=== PATIENT | female | born 2005 | race Two or more races ===

== ENCOUNTER 2025-02-16 16:09 | Emergency (ER) | payer MEDICAID, OTHER ==
--- NOTE | 2025-02-16 16:39 | ED.PDOC ---
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 Patient reports she is X4 weeks with her first child. Patient reports abdominal pain as constant, radiating to lower back, with no associated relieving factors. Patient has no further complaints at this time and otherwise denies further associated symptoms of dysuria, hematuria, fever, chills, diarrhea, or N/V. Chief Complaint: Vaginal Bleed Time Seen by MD: 16:34 Reviewed Notes: Nurses Notes, Medications, Allergies Allergies: Coded Allergies: NO KNOWN ALLERGIES (Unverified , 02/16/25) Information Source: Patient Mode of Arrival: Ambulatory Timing: Minutes Severity: Moderate Onset Of Mass/Bleeding: Spontaneous Associated Signs and Symptoms: Vaginal Bleeding, Abdominal Pain Past Medical History PAST MEDICAL HISTORY: Denies Surgical History: Denies all surgeries 1 Social History Smoker: Non-Smoker Alcohol: Denies ETOH Use Drugs: Denies Drug Use Lives In: Home Constitutional: denies: chills, diaphoresis, fatigue, fever, malaise, sweats, weakness, others EENTM: denies: blurred vision, double vision, ear bleeding, ear discharge, ear drainage, ear pain, ear ringing, eye pain, eye redness, hearing loss, mouth pain, mouth swelling, nasal discharge, nose bleeding, nose congestion, nose pain, photophobia, tearing, throat pain, throat swelling, voice changes, others Respiratory: denies: cough, hemoptysis, orthopnea, SOB at rest, shortness of breath, SOB with excertion, stridor, wheezing, others Cardiovascular: denies: chest pain, dizzy spells, diaphoresis, Dyspnea on exertion, edema, irregular heart beat, left arm pain, lightheadedness, palpitations, PND, syncope, others Gastrointestinal: reports: abdominal pain; denies: abdomen distended, blood streaked bowels, constipated, diarrhea, dysphagia, difficulty swallowing, hematemesis, melena, nausea, poor appetite, poor fluid intake, rectal bleeding, rectal pain, vomiting, others Genitourinary: reports: abnormal vagina bleeding, ; denies: burning, dyspareunia, dysuria, flank pain, frequency, hematuria, incontinence, pain, vagina discharge, urgency, others Neurological: denies: dizziness, fainting, headache, left sided numbness, left sided weakness, numbness, paresthesia, pre-existing deficit, right sided numbness, right sided weakness, seizure, speech problems, tingling, tremors, weakness, others Musculoskeletal: denies: back pain, gout, joint pain, joint swelling, muscle pain, muscle stiffness, neck pain, others Integumetry: denies: bruises, change in color, change in hair/nails, dryness, laceration, lesions, lumps, rash, wounds, others Allergic/Immunocompromised: denies: Difficulty Healing, Frequent Infections, Hives, Itching, others Hematologic/Lymphatic: denies: anemia, blood clots, easy bleeding, easy bruising, swollen glands, others Endocrine: denies: excessive hunger, excessive sweating, excessive thirst, excessive urination, flushing, intolerance to cold, intolerance to heat, unexplained weight gain, unexplained weight loss, others Psychiatric: denies: anxiety, bipolar disorder, depression, hopeless, panic disorder, schizophrenia, sleepless, suicidal, others All Other Systems: Reviewed and Negative Physical Exam General Appearance: No Apparent Distress HEENT: Normal ENT Inspection, Pharynx Normal, TMs Normal Neck: Full Range of Motion, Non-Tender, Normal, Normal Inspection Respiratory: Chest Non-Tender, Lungs Clear, No Accessory Muscle Use, No Respiratory Distress, Normal Breath Sounds Cardiovascular: No Edema, No JVD, No Murmur, No Gallop, Normal Peripheral Pulses, Regular Rate/Rhythm Breast Exam: Deferred Gastrointestinal: No Organomegaly, Non Tender, No Pulsatile Mass, Normal Bowel Sounds, Soft Genitalia: Deferred Pelvic: Deferred Rectal: Deferred Extremities: No calf tenderness, Normal capillary refill, Normal inspection, Normal range of motion, Non-tender, No pedal edema Musculoskeletal : Apperance: Normal Neurologic: Alert, 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 Was a procedure done?: No Differential Diagnosis (MACHINE [employer]ATE [employer]ER) Vaginal Bleeding: - Incomplete, - Threatened, Ectopic Vaginal Discharge: X-Ray, Labs, Meds, VS Vital Signs Date Time Temp Pulse Resp B/P (MAP) Pulse Ox O2 Delivery O2 Flow Rate FiO2 02/16/25 16:11 98.7 105 20 135/81 95 98.7 Lab Test 02/16/25 16:54 02/16/25 16:19 Range/Units Beta HCG, Quantitative 90621.5 H 1.5-4.2 mIU/mL Urine Color Light-red Yellow Urine Clarity Ex.turbid Clear Urine pH 6.5 5.0-9.0 Urine Specific [place] 1.017 1.001-1.035 Urine Protein Trace H Negative Urine Ketones Negative Negative Urine Blood 3+ H Negative /uL Urine Nitrite Negative Negative Urine Bilirubin Negative Negative Urine Urobilinogen Normal Negative mg/dL Urine Leukocyte Esterase 1+ Negative /uL Urine RBC 6550 0 - 4 /hpf Urine Microscopic WBC 3 0-5 /HPF Urine Squamous Epithelial Cells None seen <5 /hpf Urine Bacteria None seen None Seen /hpf Urine Mucus Few None Seen Urine Glucose Normal Normal mg/dL OB US Impression: Single live intrauterine with heart rate of 148 bpm. Estimated gestational age 7 weeks/ 3 days with estimated date of confinement 10/02/2025. 2.6 x 2.4 x 2.8 cm subchorionic hemorrhage is noted. The right ovary is not visualized. The urine test is positive for UTI The patient is being discharged with a diagnosis of threatened and UTI in The patient will return to the emergency department's condition worsens The patient was given a prescription of Macrobid Images Reviewed?: Images reviewed and evaluated by me Time of 1ST Reevaluation: 17:21 Reevaluation 1ST: Unchanged Patient Education/Counseling: Diagnosis, Treatment, Prognosis, Need For Follow Up Family Education/Counseling: No Family Present Departure 1 Departure Time of Disposition: 18:54 Impression: Primary Impression: Threatened Disposition: 01 HOME / SELF CARE / HOMELESS Condition: Stable Discharged With: Self, Relative (Mother) Critical Care Note Critical Care Time?: No Stability Stability form required: No Heart Score Heart Score: Heart Score Response (Comments) Value History N/A 0 EKG N/A 0 Age N/A 0 Risk Factors N/A 0 Troponin N/A 0 Total 0 I personally scribed for ALEXX ARGUELLO MD ([email or web address]) on 02/16/25 at 16:39. Electronically submitted by Sonal Loya ([employer]). I personally scribed for ALEXX ARGUELLO MD ([email or web address]) on 02/16/25 at 16:40. Electronically submitted by Sonal Loya ([email or web address]). I personally scribed for ALEXX ARGUELLO MD ([email or web address]) on 02/16/25 at 18:35. Electronically submitted by Sonal Loya ([email or web address]). ALEXX ARGUELLO MD Feb 16, 2025 16:39
[2025-02-16 17:20] LABS: Urine Protein, UAD TRACE (Negative)
--- NOTE | 2025-02-16 18:33 | DVH ---
Procedure: US OB ULTRASOUND COMP LESS 14WKS Study Date and Requested Time: 02/16/2025 05:57 PM Study Description: US OB ULTRASOUND COMP LESS 14WKS History: pain Comparison: None Technique: Multiple high resolution hussein-scale images obtained of the uterus, fetus, and other gestat ional components with M-mode scanning for evaluation of heart rate. Findings: Single live intrauterine with gestational sac, yolk sac, and fetus visualized. heart rate of 148 bpm. Estimated gestational age 7 weeks/ 3 days based on mean gestational sac diameter of 2.6 cm and crown-rump length of 1 cm. 2.6 x 2.4 x 2.8 cm subchorionic hemorrhage is noted. Uterus measures 9.7 x 6.1 x 6 cm in size. Cervical os appears closed. Right ovary is not visualized. Left ovary measures 3.9 x 2.6 x 2.3 cm with a 1.7 cm cyst. Normal left ovarian color Doppler flow. No evidence of free fluid in the cul-de-sac. Impression: Single live intrauterine with heart rate of 148 bpm. Estimated gestational age 7 week s/ 3 days with estimated date of confinement 10/02/2025. 2.6 x 2.4 x 2.8 cm subchorionic hemorrhage is noted. The right ovary is not visualized.
[2025-02-16] MEDS ORDERED: NITR-87 PO (18:55)
[2025-02-16] MEDS: ACETAMINOPHEN 500 MG TAB or CAP PO ONE (21:30)
[2025-02-16 22:52] VITALS: BP 114/64; PULSE 79; RESP 18; TEMP 97.5; O2SAT 98
== END 2025-02-16 22:25 | disposition home or self-care (01) ==
LOC: ER 16:09
DX: O20.0 Threatened abortion (principal); Z3A.01 Less than 8 weeks gestation of pregnancy
CPT/HCPCS: 36415; 76801; 81001; 84702